=== PATIENT | female | born 1955 | race African-American/Black ===

== ENCOUNTER → 2016-11-16 | Outpatient (CLI) | payer BC, OTHER ==
--- NOTE | 2016-11-16 10:50 | RAD ---
CT abdomen and pelvis without contrast History: Pelvic mass. Comparison: None. Technique: Helical CT of the abdomen and pelvis was performed without intravenous or oral contrast. Axial, sagittal, and coronal reconstructions were obtained. No intravenous contrast was administered secondary to anaphylactic cyst. One or more of the following individualized dose reduction techniques were utilized for the study: Automated exposure control Adjustment of mA and/or kV according to patient's size Use of iterative reconstruction technique. Findings: Evaluation of the solid organs is limited by lack of intravenous contrast. Evaluation of enteric structures may be limited by lack of oral contrast. Liver, spleen, pancreas, gallbladder, and bilateral adrenal glands are unremarkable. There is no evidence of bowel obstruction. No free air or free fluid is identified in the abdomen or pelvis. Appendix appears within normal limits. There is a very large heterogeneous pelvic mass which appears adjacent to or could arise from the uterus. Mass measures roughly 10 cm in AP dimension x 13 cm in transverse dimension x 12 cm in craniocaudal dimension. The mass is mildly heterogeneous and demonstrates a few foci of calcifications. At the left superior aspect, there appears to be an exophytic component measuring about 4.5 cm in maximum dimension. The uterus itself also appears enlarged measuring roughly 10 cm in AP dimension x 9 cm in transverse dimension x 9 cm in craniocaudal dimension. Uterus displaces urinary bladder anteriorly. Ovaries are not confidently identified. No abdominal or pelvic lymphadenopathy is seen. No suspicious osseous lesions are identified. Impression: Very large, mildly heterogeneous, soft tissue appearing mass with a few calcifications is seen involving the pelvis and lower abdomen. This is adjacent to the enlarged uterus and is probably gynecologic in origin. This could represent a large exophytic uterine leiomyomata, although given size, it would be difficult to exclude sarcoma. Alternative possibility is the less common solid ovarian neoplasm.
== END | disposition home or self-care (01) ==
LOC: CT 08:18
PROVIDERS: ATTEND Specialist
DX: R19.00 Intra-abdominal and pelvic swelling, mass and lump, unspecified site (principal)
CPT/HCPCS: 74176

== ENCOUNTER 2017-01-25 16:27 | Emergency (ER) | payer BC ==
[~2017-01-25] VITALS: Ht 167.6 cm; Wt 76.2 kg
[2017-01-25 16:39] VITALS: BP 198/92
--- NOTE | 2017-01-25 17:06 | PHYS DOC ---
Past Medical History Past Medical History: Diabetes-Type II, Hypertension, Uterine Fibroids Past Surgical History: , Hysterectomy, Other Additional Past Surgical Histo: UTERINE FIBROID Alcohol Use: None Drug Use: None Adult General Chief Complaint Chief Complaint: OTHER COMPLAINTS [facility] Patient is a 61 year old female with history of hypertension, diabetes type 2 and uterine fibroids who presents today with abdominal surgical incision dehiscence. Patient states she had fibroid tumors removed as well as an ovarian cyst removed on December 11, 2016. She states today she felt very well and decided to sweep the floor using a broom and suddenly noted a surgical incision has dehisced. Patient denies any pain. PCP Dr. Bari ROSAS: Dr. Mccloud Review of Systems Review of Systems Constitutional: Denies fever or chills [] Eyes: Denies change in visual acuity, redness, or eye pain [] HENT: Denies nasal congestion or sore throat [] Respiratory: Denies cough or shortness of breath [] Cardiovascular: No additional information not addressed in HPI [] GI: Denies abdominal pain, nausea, vomiting, bloody stools or diarrhea [] : Denies dysuria or hematuria [] Musculoskeletal: Denies back pain or joint pain [] Integument: abdominal surgical incision dehiscence Neurologic: Denies headache, focal weakness or sensory changes [] Endocrine: Denies polyuria or polydipsia [] Allergies Allergies Allergies Coded Allergies Type Severity Reaction Last Updated Verified Penicillins Allergy Intermediate Rash 01/25/17 Yes Sulfa (Sulfonamide Antibiotics) Allergy Intermediate Hives 01/25/17 Yes amoxicillin Allergy Intermediate Rash 01/25/17 Yes Physical Exam Physical Exam Constitutional: Well developed, well nourished, no acute distress, non-toxic appearance. [] HENT: Normocephalic, atraumatic, bilateral external ears normal, oropharynx moist, no oral exudates, nose normal. [] Eyes: PERRLA, EOMI, conjunctiva normal, no discharge. [] Neck: Normal range of motion, no tenderness, supple, no stridor. [] Cardiovascular:Heart rate regular rhythm, no murmur [] Lungs & Thorax: Bilateral breath sounds clear to auscultation [] Abdomen: Bowel sounds normal, soft, no tenderness, no masses, no pulsatile masses. [] Skin: Midline abdominal incision noted. The middle of the incision has a tiny dehisced area approximately 0.1 x 0.1 cm with trace amount of bloody drainage. Pressure dressing was applied to the area on arrival to the ED. There is no redness to the area no warmth to the area. Back: No tenderness, no CVA tenderness. [] Extremities: No tenderness, no cyanosis, no clubbing, ROM intact, no edema. [] Neurologic: Alert and oriented X 3, normal motor function, normal sensory function, no focal deficits noted. [] Psychologic: Affect normal, judgement normal, mood normal. [] Current Patient Data Vital Signs Vital Signs Date Time Temp Pulse Resp B/P (MAP) Pulse Ox O2 Delivery O2 Flow Rate FiO2 01/25/17 16:39 98.2 71 18 198/92 (127) 98 Room Air 98.2 EKG EKG [] Radiology/Procedures Radiology/Procedures [] Course & Med Decision Making Course & Med Decision Making Pertinent Labs and Imaging studies reviewed. (See chart for details) Patient has a decreased surgical incision approximately 0.1 x 0.1 midline abdomen post fibroid removal December 11, 2016. She is afebrile. The incision site does not appear infected. 16:55 spoke with the [employer] doctor Ame, he requested to apply pressure dressing to the area and patient to follow up with the office on Saturday at 10 AM. Pressure dressing was already applied to the area. Patient provided follow- up information. Patient's blood pressure was 198/92 with heart rate of 71. She states she was changed to a new blood pressure medicine and is supposed to go to the pharmacy today and pick it up. Patient has no neurological/cardiac symptoms. She does not know the name of the medicine. She states she's going to the pharmacy and pick it up. She prefers not to be given anything in the ED. Dragon Disclaimer Dragon Disclaimer This electronic medical record was generated, in whole or in part, using a voice recognition dictation system. Departure Departure Impression: Primary Impression: Dehiscence of internal surgical incision Additional Impression: Accelerated hypertension Disposition: 01 HOME, SELF-CARE Condition: STABLE Referrals: KANCHAN CANDELARIA MD (PCP) ALYCIA MCCLOUD MD Follow-up with Dr. Mccloud on Saturday at 10 AM Patient Instructions: Hypertension, Wound Dehiscence, [id number] Additional Instructions: You were seen for surgical incision dehiscence. Avoid doing any strenuous activities. Do not lift anything greater than a gallon of milk. Keep pressure dressing on the affected area. Keep the area clean and dry. Follow-up with Dr. Mccloud on Saturday at 10 AM. Ensure you stop at the pharmacist today and to get your blood pressure medicines. If your blood pressure continues to stay high come back to the emergency room or contact Dr. Candelaria and follow up. 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
== END 2017-01-25 17:17 | disposition home or self-care (01) ==
LOC: ER 16:27
DX: T81.32XA Disruption of internal operation (surgical) wound, not elsewhere classified, initial encounter (principal); E11.9 Type 2 diabetes mellitus without complications; I10 Essential (primary) hypertension; Z90.710 Acquired absence of both cervix and uterus; Z88.0 Allergy status to penicillin; Z88.2 Allergy status to sulfonamides; Y83.8 Other surgical procedures as the cause of abnormal reaction of the patient, or of later complication, without mention of misadventure at the time of the procedure; Y92.89 Other specified places as the place of occurrence of the external cause
CPT/HCPCS: 99281

== ENCOUNTER → 2017-06-06 | Outpatient (CLI) | payer BC ==
--- NOTE | 2017-06-06 14:49 | RAD ---
DATE: 06/06/2017 EXAM: DIGITAL SCREEN BILAT W/CAD HISTORY: Routine screening COMPARISON: 07/30/2014 This study was interpreted with the benefit of Computerized Aided Detection (CAD). FINDINGS: Breast Density: SCATTERED The breast parenchyma shows scattered fibroglandular densities. Breast parenchyma level B. There are no dominant suspicious masses, suspicious microcalcifications or evidence of architectural distortion. IMPRESSION: Benign findings BI-RADS CATEGORY: 2 BENIGN FINDING RECOMMENDED FOLLOW-UP: 12M 12 MONTH FOLLOW-UP PQRS compliance statement: Patient information was entered into a reminder system with a target due date 06/06/2018 for the next mammogram. Mammography is a sensitive method for finding small breast cancers, but it does not detect them all and is not a substitute for careful clinical examination. A negative mammogram does not negate a clinically suspicious finding and should not result in delay in biopsying a clinically suspicious abnormality. "Our facility is accredited by the [employer] Mammography Program."
== END | disposition home or self-care (01) ==
LOC: MAMMO 09:51
PROVIDERS: ATTEND Family Medicine
DX: Z12.31 Encounter for screening mammogram for malignant neoplasm of breast (principal)
CPT/HCPCS: G0202; 77067

== ENCOUNTER 2017-06-26 14:27 | Emergency (ER) | payer BC ==
[~2017-06-26] VITALS: Ht 167.6 cm; Wt 77.1 kg
--- NOTE | 2017-06-26 15:11 | PHYS DOC ---
Past Medical History Past Medical History: Diabetes-Type II, Hypertension, Uterine Fibroids Past Surgical History: , Hysterectomy, Other Additional Past Surgical Histo: UTERINE FIBROID, MASS REMOVED FROM ABD, CYST FROM R OVARY Alcohol Use: None Drug Use: None Adult General Chief Complaint Chief Complaint: NAUSEA/VOMITING/DIARRHA HPI HPI Patient is a 62 year old female who presents with 4 hour history of moderate severity nausea vomiting lower abdominal pain and cramping no diarrhea. No radiation of the pain no exacerbating causes. She did eat some spicy chili yesterday was not sure if that may have contributed. She of type 2 diabetes and abdominal hysterectomy with a recent fibroid removal that was attached to her intestines about 6 months ago noncancerous. No history of cholecystectomy or appendectomy. Review of Systems Review of Systems Constitutional: Denies fever or chills [] Eyes: Denies change in visual acuity, redness, or eye pain [] HENT: Denies nasal congestion or sore throat [] Respiratory: Denies cough or shortness of breath [] Cardiovascular: No additional information not addressed in HPI [] GI: Denies abdominal pain, nausea, vomiting, bloody stools or diarrhea [] : Denies dysuria or hematuria [] Musculoskeletal: Denies back pain or joint pain [] Integument: Denies rash or skin lesions [] Neurologic: Denies headache, focal weakness or sensory changes [] Endocrine: Denies polyuria or polydipsia [] All other systems were reviewed and found to be within normal limits, except as documented in this note. Current Medications Current Medications Current Medications Medications (Trade) Dose Ordered Sig/Megan Start Time Stop Time Status Last Admin Dose Admin Hydromorphone HCl (Dilaudid) 0.5 mg 1X ONCE 06/26/17 15:15 06/26/17 15:16 DC 06/26/17 15:21 0.5 MG Info (Do NOT chart on this entry -- for MONITORING) 1 each PRN DAILY PRN 06/26/17 15:45 06/26/17 17:04 DC Iohexol (Omnipaque 300 Mg/ml) 75 ml 1X ONCE 06/26/17 15:45 06/26/17 15:46 DC Ondansetron HCl (Zofran) 4 mg 1X ONCE 06/26/17 15:15 06/26/17 15:16 DC 06/26/17 15:20 4 MG Sodium Chloride 1,000 ml @ 1,000 mls/hr 1X ONCE 06/26/17 15:15 06/26/17 16:14 DC 06/26/17 15:21 1,000 MLS/HR Allergies Allergies Allergies Coded Allergies Type Severity Reaction Last Updated Verified Iodine and Iodide Containing Produc Allergy Severe HIVES, THROAT SWELLING Yes Penicillins Allergy Intermediate Rash 06/26/17 Yes Sulfa (Sulfonamide Antibiotics) Allergy Intermediate Hives 06/26/17 Yes amoxicillin Allergy Intermediate Rash 06/26/17 Yes Physical Exam Physical Exam Constitutional: Well developed, well nourished, no acute distress, non-toxic appearance. [] HENT: Normocephalic, atraumatic, bilateral external ears normal, oropharynx moist, no oral exudates, nose normal. [] Eyes: PERRLA, EOMI, conjunctiva normal, no discharge. [] Neck: Normal range of motion, no tenderness, supple, no stridor. [] Cardiovascular:Heart rate regular rhythm, no murmur [] Lungs & Thorax: Bilateral breath sounds clear to auscultation [] Abdomen: Bowel sounds normal, soft, mild lower tenderness, no masses, no pulsatile masses. [] Skin: Warm, dry, no erythema, no rash. [] Back: No tenderness, no CVA tenderness. [] Extremities: No tenderness, no cyanosis, no clubbing, ROM intact, no edema. [] Neurologic: Alert and oriented X 3, normal motor function, normal sensory function, no focal deficits noted. [] Psychologic: Affect normal, judgement normal, mood normal. [] Current Patient Data Vital Signs Vital Signs Date Time Temp Pulse Resp B/P (MAP) Pulse Ox O2 Delivery O2 Flow Rate FiO2 06/26/17 16:30 68 17 141/76 (97) 94 Room Air 06/26/17 14:35 97.6 97.6 Lab Values Laboratory Tests Test 06/26/17 14:40 06/26/17 15:10 White Blood Count 9.9 x10^3/uL (4.0-11.0) Red Blood Count 4.30 x10^6/uL (3.50-5.40) Hemoglobin 13.1 g/dL (12.0-15.5) Hematocrit 38.6 % (36.0-47.0) Mean Corpuscular Volume 90 fL (79-100) Mean Corpuscular Hemoglobin 30 pg (25-35) Mean Corpuscular Hemoglobin Concent 34 g/dL (31-37) Red Cell Distribution Width 13.7 % (11.5-14.5) Platelet Count 251 x10^3/uL (140-400) Neutrophils (%) (Auto) 81 % (31-73) H Lymphocytes (%) (Auto) 15 % (24-48) L Monocytes (%) (Auto) 3 % (0-9) Eosinophils (%) (Auto) 1 % (0-3) Basophils (%) (Auto) 1 % (0-3) Neutrophils # (Auto) 8.0 x10^3uL (1.8-7.7) H Lymphocytes # (Auto) 1.5 x10^3/uL (1.0-4.8) Monocytes # (Auto) 0.3 x10^3/uL (0.0-1.1) Eosinophils # (Auto) 0.1 x10^3/uL (0.0-0.7) Basophils # (Auto) 0.1 x10^3/uL (0.0-0.2) Sodium Level 138 mmol/L (136-145) Potassium Level 3.4 mmol/L (3.5-5.1) L Chloride Level 99 mmol/L (98-107) Carbon Dioxide Level 31 mmol/L (21-32) Anion Gap 8 (6-14) Blood Urea Nitrogen 14 mg/dL (7-20) Creatinine 0.9 mg/dL (0.6-1.0) Estimated GFR (Cockcroft-Gault) 76.5 BUN/Creatinine Ratio 16 (6-20) Glucose Level 168 mg/dL (70-99) H Calcium Level 9.7 mg/dL (8.5-10.1) Total Bilirubin 0.4 mg/dL (0.2-1.0) Aspartate Amino Transferase (AST) 22 U/L (15-37) Alanine Aminotransferase (ALT) 21 U/L (14-59) Alkaline Phosphatase 63 U/L (46-116) Troponin I Quantitative < 0.017 ng/mL (0.000-0.055) Total Protein 7.9 g/dL (6.4-8.2) Albumin 3.7 g/dL (3.4-5.0) Albumin/Globulin Ratio 0.9 (1.0-1.7) L Lipase 144 U/L (73-393) Urine Collection Type Unknown Urine Color Yellow Urine Clarity Turbid Urine pH 8.0 Urine Specific [place] 1.015 Urine Protein Negative mg/dL (NEG-TRACE) Urine Glucose (UA) Negative mg/dL (NEG) Urine Ketones (Stick) Negative mg/dL (NEG) Urine Blood Negative (NEG) Urine Nitrite Negative (NEG) Urine Bilirubin Negative (NEG) Urine Urobilinogen Dipstick 0.2 mg/dL (0.2 mg/dL) Urine Leukocyte Esterase Negative (NEG) Urine RBC 0 /HPF (0-2) Urine WBC 0 /HPF (0-4) Urine Squamous Epithelial Cells Few /LPF Urine Amorphous Sediment Present /HPF Urine Bacteria Few /HPF (0-FEW) Laboratory Tests 06/26/17 14:40 Laboratory Tests 06/26/17 14:40 EKG EKG EKG normal sinus rhythm rate of 67 no STEMI QTC 409 my interpretation[] Radiology/Procedures Radiology/Procedures CT scan abdomen and pelvis: Negative per radiology report chest x-ray[ negative per radiology report] Course & Med Decision Making Course & Med Decision Making Pertinent Labs and Imaging studies reviewed. (See chart for details) [Plan of care will be to check labs including urinalysis and CT scan abdomen and pelvis and treat symptomatically.] Labs and imaging were unremarkable examination at 4:30 PM patient is pain-free feels completely better and wants to go home. Dragon Disclaimer Dragon Disclaimer This electronic medical record was generated, in whole or in part, using a voice recognition dictation system. Departure Departure Impression: Primary Impression: Acute abdominal pain Additional Impression: Vomiting with nausea, not intractable Disposition: 01 HOME, SELF-CARE Condition: IMPROVED Referrals: KANCHAN WATT MD (PCP) Patient Instructions: Abdominal Pain (Nonspecific), Nausea and Vomiting, Easy- to-Read Scripts Ondansetron (ZOFRAN ODT) 4 Mg Tab.rapdis 4 MG PO TID Y for NAUSEA/VOMITING, #10 TAB Prov: JEANE ANDREW MD 06/26/17 Problem Qualifiers JEANE ANDREW MD Jun 26, 2017 15:11
[2017-06-26 15:12] LABS: BASO # 0.1 x10^3/uL (0.0-0.2); BASO % 1 % (0-3); EOS % 1 % (0-3); HEMATOCRIT 38.6 % (36.0-47.0); HEMOGLOBIN 13.1 g/dL (12.0-15.5); LYMPH # 1.5 x10^3/uL (1.0-4.8); LYMPH % 15 % (24-48); MEAN CORPUSCULAR HEMOGLOBIN 30 pg (25-35); MEAN CORPUSCULAR HGB CONC 34 g/dL (31-37); MEAN CORPUSCULAR VOLUME 90 fL (79-100); MONO % 3 % (0-9); NEUT % 81 % (31-73); PLATELET COUNT 251 x10^3/uL (140-400); RED CELL DISTRIBUTION WIDTH 13.7 % (11.5-14.5); WHITE BLOOD COUNT 9.9 x10^3/uL (4.0-11.0)
[2017-06-26] MEDS ORDERED: HYDROmorphone 2 MG/ML VIAL IV ONE (15:15)
[2017-06-26] MEDS ORDERED: ONDANSETRON PF 4 MG/2 ML VIAL. IV ONE (15:15)
[2017-06-26] MEDS ORDERED: IV NORMAL SALINE 1000ML BAG 1,000 ML IV ONE (15:15)
[2017-06-26 15:24] LABS: BILIRUBIN,URINE NEGATIVE (NEG); GLUCOSE,URINE NEGATIVE (NEG); NITRITE,URINE NEGATIVE (NEG); PROTEIN,URINE NEGATIVE (NEG-TRACE); UROBILINOGEN,URINE 0.2 mg/dL (0.2 mg/dL)
[2017-06-26 15:25] LABS: CALCIUM 9.7 mg/dL (8.5-10.1); CREATININE 0.9 mg/dL (0.6-1.0); GFR 76.5; POTASSIUM 3.4 mmol/L (3.5-5.1)
[2017-06-26 15:31] LABS: ALBUMIN 3.7 g/dL (3.4-5.0); ALBUMIN/GLOBULIN RATIO 0.9 (1.0-1.7); TOTAL BILIRUBIN 0.4 mg/dL (0.2-1.0); TOTAL PROTEIN 7.9 g/dL (6.4-8.2)
[2017-06-26 15:32] LABS: BACTERIA,URINE FEW /HPF (0-FEW); RBC,URINE 0 /HPF (0-2); SQUAMOUS EPITHELIAL CELL,UR FEW /LPF; WBC,URINE 0 /HPF (0-4)
--- NOTE | 2017-06-26 15:35 | RAD ---
Portable chest, 06/26/2017: History: Nausea, cough, weakness The heart size and pulmonary vascularity are normal. There is a small nodule projected over the lateral aspect of the right upper lobe. While this may be a granuloma, a neoplastic etiology cannot be excluded. No pulmonary consolidation is seen. There is no evidence of pleural fluid. IMPRESSION: 1. Small right upper lobe pulmonary nodule. Correlation with previous chest radiographs if available, radiographic follow-up or CT scanning is suggested to confirm that this is a benign process. 2. No acute cardiopulmonary abnormality is detected.
[2017-06-26] MEDS ORDERED: IOHEXOL 300 MG/ML 100ML VIAL. IV ONE (15:45)
[2017-06-26] MEDS ORDERED: CONTRAST GIVEN MC PRN (15:45)
--- NOTE | 2017-06-26 16:15 | RAD ---
CT of the abdomen and pelvis without contrast, 06/26/2017: History: Nausea, vomiting, diarrhea, lower abdominal pain Noncontrast scans were obtained as requested reportedly due to an iodine allergy. This limits evaluation of the abdominal structures. The unopacified liver is unremarkable. No gallbladder abnormality is seen. The pancreas is unremarkable. The spleen is of normal size. The unopacified kidneys are unremarkable. The abdominal aorta is of normal caliber. No abdominal or pelvic adenopathy is seen. The uterus is surgically absent. There is moderate amount of stool in the colon. A segment of the appendix is visualized and it is of normal caliber. There is a tiny collection of fluid in the adjacent paracolic gutter along the posterior aspect of the cecum. No bowel dilatation is evident. There are surgical sutures in the anterior aspect of the abdomen. An abdominal/pelvic mass seen on 11/16/2016 has been removed in the interval. There is soft tissue thickening involving the anterior abdominal wall at the lower abdominal and upper pelvic level, probably representing postsurgical scarring. No abnormal fluid collection is seen in this region. No free air is evident in the abdomen or pelvis. IMPRESSION: 1. Interval removal of a large abdominal/pelvic mass since 11/16/2016 with postsurgical scarring involving the anterior abdominal wall. 2. Tiny amount of fluid in the right paracolic gutter adjacent to a nondilated appendix. Early appendicitis cannot be entirely excluded. PQRS Compliance Statement: One or more of the following individualized dose reduction techniques were utilized for this examination: 1. Automated exposure control 2. Adjustment of the mA and/or kV according to patient size 3. Use of iterative reconstruction technique
[2017-06-26 16:30] VITALS: BP 141/76
[2017-06-26] MEDS ORDERED: ONDA4TAB10 PO (16:38)
--- NOTE | 2017-06-27 08:16 | EKG ---
[facility] [address] [place] [address] Test Date: 2017-06-26 Test Time: 14:58:31 Pat Name: SYLVAIN HENRY Department: Room: Gender: F [employer]: : [id number] Requested By: JEANE ANDREW Order Number: [id number] Reading MD: Roscoe Beasley MD Measurements Intervals Apex Rate: 67 P: 0 DC: 194 QRS: 35 QRSD: 88 T: 58 QT: 384 QTc: 409 Interpretive Statements SINUS RHYTHM Electronically Signed On 06-27-2017 16:10:11 PRESIDENT ERGONOMIC CONSULTING by Roscoe Beasley MD
== END 2017-06-26 17:03 | disposition home or self-care (01) ==
LOC: ER 14:27
DX: R11.2 Nausea with vomiting, unspecified (principal); R10.30 Lower abdominal pain, unspecified; E11.9 Type 2 diabetes mellitus without complications; Z90.710 Acquired absence of both cervix and uterus; Z98.890 Other specified postprocedural states; I10 Essential (primary) hypertension; Z88.0 Allergy status to penicillin; Z88.2 Allergy status to sulfonamides; Z88.1 Allergy status to other antibiotic agents; Z91.041 Radiographic dye allergy status
CPT/HCPCS: 36415; 71010; 74176; 80053; 81001; 83690; 84484; 85025; 93005; 96361; 96374; 96375; 99285; J1170; J2405; J7030

== ENCOUNTER → 2018-08-16 | Outpatient (CLI) | payer OTHER ==
[~2018-08-16] MED LIST: ONDA4TAB10 PO
--- NOTE | 2018-08-18 15:03 | RAD ---
DATE: 08/16/2018 EXAM: MAMMO MARTIN SCREENING BILATERAL HISTORY: Routine screening COMPARISON: 06/06/2017 This study was interpreted with the benefit of Computerized Aided Detection (CAD). Breast Density: SCATTERED The breast parenchyma shows scattered fibroglandular densities. Breast parenchyma level B. FINDINGS: 2-D and 3-D tomosynthesis imaging was performed in CC and MLO projections. The retroareolar fibroglandular tissues are mildly asymmetric being more prominent on the left than the right. This finding is unchanged. No new or enlarging breast densities are seen. There are scattered benign type calcifications. A cluster of relatively coarse calcifications in the superior aspect of the left breast at the 12:00 location is stable. No suspicious microcalcifications have developed. IMPRESSION: Stable mammograms without evidence of malignancy. BI-RADS CATEGORY: 2 BENIGN FINDING(S) RECOMMENDED FOLLOW-UP: 12M 12 MONTH FOLLOW-UP PQRS compliance statement: Patient information was entered into a reminder system with a target due date for the next mammogram. Mammography is a sensitive method for finding small breast cancers, but it does not detect them all and is not a substitute for careful clinical examination. A negative mammogram does not negate a clinically suspicious finding and should not result in delay in biopsying a clinically suspicious abnormality. "Our facility is accredited by the [employer] Mammography Program."
== END | disposition home or self-care (01) ==
LOC: MAMMO 10:37
PROVIDERS: ATTEND Family Medicine
DX: Z12.31 Encounter for screening mammogram for malignant neoplasm of breast (principal)
CPT/HCPCS: 77063; 77067

== ENCOUNTER → 2019-10-08 | Outpatient (CLI) | payer MEDICARE ==
--- NOTE | 2019-10-08 17:08 | KCIC ---
PROCEDURE: KNEE LEFT 3V STUDY DATE: 10/08/2019 CLINICAL INDICATION / HISTORY: Primary osteoarthritis of the left knee.. TECHNIQUE: AP, lateral, and sunrise views of the left knee. COMPARISON: None FINDINGS: The osseous structures are intact. The articular surfaces are smooth. The joint space is maintained. No intra-articular loose bodies. The alignment is within normal limits. The soft tissues are unremarkable. No obvious joint effusion. No radio-opaque foreign bodies are identified. Small enthesophytes of the superior patella pole. Mild lateral patellofemoral compartment joint space narrowing. Minimal medial patella facet osteophytic spurring. IMPRESSION: Mild patellofemoral compartment degenerative change. Otherwise unremarkable left knee x-rays. Electronically signed by: Melba Guzman MD (10/08/2019 5:05 PM) [facility]
== END ==
LOC: KCIC 12:34
PROVIDERS: ATTEND Nurse Practitioner Gerontology
DX: M17.12 Unilateral primary osteoarthritis, left knee (principal)
CPT/HCPCS: 73562